=== PATIENT | male | born 1970 | race Caucasian/White ===

== ENCOUNTER 2022-05-17 12:52 | Emergency (ER) | payer OTHER, BC, SELFPAY ==
[2022-05-17] VITALS (8 sets, daily range): BP systolic 153–165; BP diastolic 97–114; PULSE 79–99; RESP 10–25; TEMP 36.5; O2SAT 97–100
--- NOTE | ~2022-05-17 | XR_ITS ---
EXAMINATION: XR chest 2V DATE: 05/17/2022 13:35 INDICATION: Chest pain. TECHNIQUE: Frontal and lateral views of the chest were obtained. COMPARISON: Chest 2 views 01/19/2013 FINDINGS: The chest demonstrates clear lungs without pneumonia, pleural effusion, or pneumothorax. Th e heart size is normal. IMPRESSION: 1. No acute cardiopulmonary disease. Reviewed, dictated and finalized at location A.
--- NOTE | 2022-05-17 12:58 | ECG_ITS ---
Measurements Intervals [place] Rate: 80 P: 25 AL: 142 QRS: -29 QRSD: 82 T: 24 QT: 339 QTc: 391 Interpretive Statements SINUS RHYTHM POSSIBLE LEFT ATRIAL ENLARGEMENT BORDERLINE R WAVE PROGRESSION, ANTERIOR LEADS POSSIBLE LEFT VENTRICULAR HYPERTROPHY BASELINE ARTIFACT- I, II, III, AVR, AVL, AVF BORDERLINE ECG NO PREVIOUS ECG AVAILABLE FOR COMPARISON Electronically Signed On 05-17-2022 13:19:42 CDT by Olvin Downing D.O.
[2022-05-17 13:13] LABS: Basophils Absolute Auto 0.1 K/mm3 (0.0-0.1); Basophils Percent Auto 0.5 % (0.2-1.2); Eosinophils Absolute Auto 0.2 K/mm3 (0-0.3); Eosinophils Percent Auto 1.6 % (0-4.4); Hematocrit 43.9 % (42.0-52.0); Hemoglobin 15.1 g/dL (14.0-18.0); Immature Granulocyte Absolute 0.02 K/mm3 (0.00-0.031); Immature Granulocyte Percent A 0.2 % (0-0.5); Lymphocytes Absolute Auto 2.17 K/mm3 (0.9-3.2); Lymphocytes Percent Auto 22.6 % (18.3-44.2); Mean Corpuscular HGB Conc 34.4 g/dl (32-36); Mean Corpuscular Hemoglobin 33.5 pg (26-34); Mean Corpuscular Volume 97.3 fl (80-100); Monocytes Absolute Auto 0.9 K/mm3 (0.1-0.6); Monocytes Percent Auto 9.5 % (2.6-8.5); Neutrophils Absolute Auto 6.3 K/mm3 (1.3-6.7); Neutrophils Percent Auto 65.6 % (45.5-73.1); Platelet Count Result 421 k/mm3 (150-375); Red Blood Count 4.51 M/mm3 (4.6-6.20); Red Cell Distribution Width 14.1 % (11.5-14.5); White Blood Count 9.6 K/mm3 (4.5-10.0)
[2022-05-17 13:24] LABS: Alanine Aminotransferase 36 U/L (6-50); Albumin Level 4.4 g/dL (3.5-5.1); Alkaline Phosphatase 139 U/L (38-126); Anion Gap 8 mmol/L (8-16); Aspartate Amino Transferase 46 U/L (17-59); Bilirubin,Total 0.6 mg/dL (0.2-1.3); Blood Urea Nitrogen 13 mg/dL (9-20); Calcium 9.2 mg/dL (8.4-10.2); Carbon Dioxide 27 mmol/L (22-30); Chloride 103 mmol/L (98-107); Estimated CRCL calculation 71 ml/min; Estimated Glomerular Filt Rate > 60; Glucose 120 mg/dL (65-110); Lipase 69 U/L (23-300); Potassium 3.5 mmol/L (3.4-5.0); Prothrombin Time 12.5 Seconds (11.1-14.7); Sodium 138 mmol/L (137-145)
[2022-05-17 13:36] LABS: Troponin I < 0.012 ng/mL (0.000-0.034)
[2022-05-17 14:43] LABS: Ethanol < 10 mg/dL (<10)
--- NOTE | 2022-05-17 15:25 | ED.GENADULT ---
HPI - General Adult General Chief complaint: Unspecified Stated complaint: multiple complaints Time Seen by Provider: 05/17/22 14:22 History of Present Illness HPI narrative: Patient is a 51-year-old male who presents ER with multiple concerns. Patient reports he had been abusing alcohol and drinking a pint a day over the last 3 years. He quit over the last week due to it affecting his work and home life. He has had some increased anxiousness related to this. It is also caused him to have upset stomach and some central chest discomfort. Aching. Worse with exhaling. No fevers or chills or sweats. No productive cough. No exertional chest discomfort. No SI/HI. Patient is also noted that his blood pressures been running higher and he currently cannot see his PCP as she is on maternity leave. Related Data Allergies Allergy/AdvReac Type Severity Reaction Status Date / Time No Known Allergies Allergy Verified 05/17/22 14:33 Review of Systems Review of Systems: All systems reviewed & are unremarkable except as noted in HPI and below Constitutional: Constitutional: Denies chills and Denies fever(s) Cardiovascular: Cardiovascular: Reports chest pain, Denies rapid heart rate and Denies palpitations Respiratory: Respiratory: Denies cough and Denies dyspnea Gastrointestinal: Gastrointestinal: Reports abdominal pain, Denies diarrhea, Denies nausea and Denies vomiting PMFSH Past Medical History Medical History (Updated 05/17/22 @ 15:56 by Linwood Hoffman MD) Anxiety Depression HIV (human immunodeficiency virus infection) Hyperlipidemia Hypertension Social History Social History (Updated 05/17/22 @ 15:56 by Linwood Hoffman MD) Alcohol use details: With the size and erythema 1 pint of liquor daily for the last 3 years quitting on 05/10/2022. Exam Narrative: GENERAL: Well-appearing, well-nourished, and in no acute distress. HEAD: Normocephalic, atraumatic. ENT: Mucous membranes moist. NECK: Supple. CHEST: Clear to auscultation. No respiratory distress. HEART: Regular rate and rhythm. Normal peripheral pulses. ABDOMEN: Soft, nontender, nondistended. EXTREMITIES: Normal range of motion. No edema. SKIN: Warm, dry, no rash. NEURO: Alert and oriented x3. PSYCH: Normal mood and affect. Course Course Emergency Course: Patient resting comfortably. Informed of results. Patient felt appropriate for discharge. She has good resources for his alcohol sobriety. Blood pressure is mildly elevated. He has a PCP he can follow-up with so he will be started on amlodipine. Vital Signs Vital signs: Vital Signs Temperature 97.7 F 05/17/22 12:54 Pulse Rate 90 05/17/22 12:54 Respiratory Rate 18 05/17/22 12:54 Blood Pressure 154/114 H 05/17/22 12:54 Pulse Oximetry 100 05/17/22 12:54 Oxygen Delivery Room Air 05/17/22 12:54 Temperature 97.7 F 05/17/22 12:54 Pulse Rate 79 05/17/22 15:31 Respiratory Rate 20 05/17/22 15:31 Blood Pressure 153/97 H 05/17/22 15:31 Pulse Oximetry 97 05/17/22 14:28 Oxygen Delivery Room Air 05/17/22 14:28 Medical Decision Making Vital Signs Vital Signs: Vital Signs Temperature 97.7 F 05/17/22 12:54 Pulse Rate 90 05/17/22 12:54 Respiratory Rate 18 05/17/22 12:54 Blood Pressure 154/114 H 05/17/22 12:54 Pulse Oximetry 100 05/17/22 12:54 Oxygen Delivery Room Air 05/17/22 12:54 Temperature 97.7 F 05/17/22 12:54 Pulse Rate 79 05/17/22 15:31 Respiratory Rate 20 05/17/22 15:31 Blood Pressure 153/97 H 05/17/22 15:31 Pulse Oximetry 97 05/17/22 14:28 Oxygen Delivery Room Air 05/17/22 14:28 Lab Data 05/17/22 13:07 05/17/22 13:07 Labs: Lab Results 05/17/22 05/17/22 05/17/22 Range/Units 13:07 13:07 13:07 WBC 9.6 (4.5-10.0) K/mm3 RBC 4.51 L (4.6-6.20) M/mm3 Hgb 15.1 (14.0-18.0) g/dL Hct 43.9 (42.0-52.0) % MCV 97.3 (80-100) fl MCH 33.5 (26-34)
[2022-05-17 16:32] LABS: Troponin I < 0.012 ng/mL (0.000-0.034)
== END 2022-05-17 16:20 | disposition home or self-care (01) ==
LOC: ANHED 16:12
PROVIDERS: Emergency Provider Emergency Medicine; PCP Internal Medicine
DX: R07.89 Other chest pain (principal); F41.9 Anxiety disorder, unspecified; I10 Essential (primary) hypertension; F10.10 Alcohol abuse, uncomplicated; Z21 Asymptomatic human immunodeficiency virus [HIV] infection status; E78.5 Hyperlipidemia, unspecified; Y90.0 Blood alcohol level of less than 20 mg/100 ml; R94.31 Abnormal electrocardiogram [ECG] [EKG]
CPT/HCPCS: 36415; 71046; 80053; 80307; 83690; 84484; 85025; 85610; 85730; 93005; 99284